=== PATIENT | female | born 1965 | race Caucasian/White ===

== ENCOUNTER → 2024-04-22 09:48 | Outpatient (REF) | payer OTHER, SELFPAY | LOC: HO.SL 09:48 | PROVIDERS: PCP Nurse Practitioner Primary Care; Visit Provider Internal Medicine | DX: G47.33 Obstructive sleep apnea (adult) (pediatric) (principal); I48.91 Unspecified atrial fibrillation | CPT/HCPCS: 95806 ==

== ENCOUNTER → 2024-04-22 10:02 | Outpatient (BNV) | payer OTHER, SELFPAY | PROVIDERS: PCP Nurse Practitioner Primary Care; Visit Provider Internal Medicine | DX: G47.33 Obstructive sleep apnea (adult) (pediatric) (principal) | CPT/HCPCS: 95806 ==

== ENCOUNTER 2024-05-30 11:09 | Outpatient (REF) | payer OTHER, SELFPAY ==
[2024-05-30 13:48] LABS: Anion Gap 12 (12-20); Blood Urea Nitrogen 9 mg/dL (9-16); Calcium 9.2 mg/dL (8.4-10.2); Carbon Dioxide 28 mmol/L (22-29); Chloride 106 mmol/L (96-108); Estimated Glomerular Filt Rate > 60; Glucose Random 72 mg/dL (60-115); Potassium 3.4 mmol/L (3.3-5.1); Sodium 143 mmol/L (135-145)
== END 2024-05-30 11:10 | disposition home or self-care (01) ==
LOC: HO.HMGCLDS 11:09
PROVIDERS: PCP Nurse Practitioner Primary Care; Visit Provider Internal Medicine
DX: I48.91 Unspecified atrial fibrillation (principal)
CPT/HCPCS: 36415; 80048

== ENCOUNTER 2024-06-17 13:42 | Outpatient (AMB) | payer OTHER, SELFPAY ==
[2024-06-17 13:45] VITALS: BP 126/60; PULSE 78; BMI 30.2
--- NOTE | 2024-06-17 13:45 | MHC.OFFVIS ---
Vital Signs 06/17/24 13:45 Height 5 ft 6 in Weight 187 lb 6.287 oz BMI 30.2 BP 126/60 Blood Pressure Location Lt brachial Position Sitting Pulse 78 Pulse Source Pulse Oximeter Intake Visit Reasons: F/U s/p CTA Allergies Penicillins [PCN] Allergy (Verified 04/30/24 13:05) Rash Medication List - Last Reconciled 06/17/24 by Reilly Moncada MD diltiazem HCl CD (Cardizem CD) 120 mg PO DAILY hydrochlorothiazide 12.5 mg PO DAILY rosuvastatin 20 mg PO DAILY HPI Comments Details: Paty returns for follow-up. In 2023, she was seen in the hospital in consultation regarding atrial fibrillation. She received diltiazem and went back to normal sinus rhythm. Has a history of possible PACs/PVCs in the past. She was having some dizziness type symptoms on diltiazem and we tried atenolol. She did not tolerate that either and hence she is back on diltiazem. Otherwise, she mostly feels okay. No significant palpitations or other clear-cut cardiac symptoms. [facility] Medical History Hyperlipidemia Family History Father Atrial fibrillation Mother HTN (hypertension) Sister Skin cancer Social History Household Members: Children Housing: House Do you presently have visiting nurse or other home services: No Alcohol intake: current Alcohol intake frequency: holidays/special occasions only Patient Tobacco Use Status: Former Tobacco user service: No Review of Systems Const Denies weakness ENT Denies dizziness Card Denies chest pain, Denies chest pain with activity, Denies syncope, Denies rapid heart rate, Denies pedal edema, Denies edema, Denies leg edema, Denies lightheadedness, Denies palpitations, Denies dyspnea, Denies dyspnea on exertion and Denies orthopnea Resp Denies cough, Denies dyspnea and Denies dyspnea on exertion GI Denies hematochezia and Denies change in stool character Musc Denies abnormal gait, Denies muscle cramps, Denies muscle weakness, Denies numbness, Denies radiating pain into limb and Denies tingling Neuro Denies abnormal gait, Denies dizziness, Denies syncope, Denies numbness, Denies tingling and Denies weakness Endo Denies palpitations Physical Exam Vital Signs: Last Vital Signs Pulse 78 06/17/24 13:45 BP 126/60 06/17/24 13:45 BMI result Body Mass Index 30.2 Const General: comfortable and no acute distress Orientation/consciousness: patient oriented x3 HEENT Other: Unremarkable Head: Yes normal to inspection Neck Neck: Yes normal visual inspection Chest Chest palpation & inspection: normal inspection of the chest Resp Auscultation: clear to auscultation bilaterally Cardio Palpation: normal PMI Heart sounds: S1 normal heart sound present, S2 normal heart sound present, no gallops, no murmurs and no rubs GI Palpation (GI): Soft to palpation Back/Spine/Pelvis Other: unremarkable Skin General skin exam: no rashes or lesions noted Neuro General: patient oriented x3 Extrem General: Yes normal to inspection Psych Mental Status: mental status grossly normal Assessment & Plan Assessment & Plan (1) Atrial fibrillation: Code(s): I48.91 - Unspecified atrial fibrillation Category: Medical (2) Premature atrial contractions: Code(s): I49.1 - Atrial premature depolarization Category: Medical Plan Cardiac studies reviewed. In the admission EKG, suspected atrial fibrillation rapid ventricular response. Could not exclude a prior inferior infarct or anterior infarct but more likely from body habitus. In the Holter monitor, underlying rhythm is sinus with frequent supraventricular ectopy. Possible transient atrial flutter/tachycardia at nighttime but not clear if it is rather an artifact. In the echocardiogram, LVEF 50-55%. Otherwise unremarkable. Coronary CTA shows no significant CAD. Overall, she seems mostly stable from atrial arrhythmias. Continue diltiazem. If she is still gets recurring symptoms, consider flecainide. We discussed about weight loss and how much it can help the atrial fibrillation she understands. It will also help the mild sleep apnea. She has got a low thromboembolic risk and okay for holding anticoagulation at this point. We will see her in 6 months with another Holter monitor. She will call us with any interim concerns. Discussion Notes I reviewed the patient's management plan for atrial fibrillation, emphasizing that current treatment with diltiazem should continue as it effectively controls symptoms. Considering her mild sleep apnea, I highlighted conservative measures such as weight loss and positional therapy, explaining the potential need for CPAP in the future. I underscored the benefit of self-monitoring devices for capturing episodic symptoms and noted that the risk of anticoagulation may alter with age and accompanying health changes. Patient was informed and verbally consented to the use of an ambient scribe for clinic note documentation during this visit. Orders: Orders ECG 14 day holter monitor 6 Months I48.91 - Unspecified atrial fibrillation Medications: Discontinued atenolol Discontinued Reason: Patient no longer taking 25 mg PO DAILY 90 tabs 3RF Patient Instructions: - Continue diltiazem 120 mg daily for atrial fibrillation. - Take hydrochlorothiazide 25 mg daily, with adjustments as needed for swelling. - Undergo a Holter monitor test in six months. - Focus on weight loss and sleep positioning to manage mild sleep apnea. - Consider using a self-monitoring device for episodes of palpitations. - Contact the office if you experience significant palpitations or other concerns. - Be aware that anticoagulation might be needed in the future based on health assessments. - Follow a diet and exercise program to assist with weight management. Coding Level of Care Code Est Pt Level 4 (85599) Complex EM visit Add On G2211 Diagnoses Atrial fibrillation I48.91 Premature atrial contractions I49.1
--- OUTSIDE RECORDS SUMMARY | 2024-06-17 16:21 | XMS_ITS | Encounter Summary ---
Author Organization [facility] Address [address] [place] [address] Care Team Providers Care Inspector Motor Vehicles Name Role Phone Yesenia Elkins NP Primary Care Provider [phone] Reason for Visit * Reason Onset Date Comments Facial Pain 06/10/2024 Encounter Details Date Type Department Care Team (Late st Contact Info) Description 06/10/2024 Telephone [facility] [address] [facility] [place] [phone] Yesenia Elkins NP [address] [place] [address] Facial Pain Social History Tobacco Use Types Packs/Day Years Used Date Smoking Tobacco: Never Smokeless Tobacco: Never Alcohol Use Standard Drinks/Week Comments Yes 1 (1 standard drink = 0.6 oz pur e alcohol) Comments Unknown Sex and Gender Information Value Date Recorded Sex Assigned at Not on file Legal Sex Female 3:44 PM EST Gender Identity Not on file Sexual Orientation Not on file documented as of this encounter Progress Notes * Adeola Colon MA - 06/10/2024 2:55 PM EDT Pt was told she needs appt to be evalauted cannot prescribe abx over the phone. Pt will call [facility]gent[facility] to book appt. * Yesenia Elkins NP - 06/10/2024 2:48 PM EDT I am not prescribing an antibiotic without an office visit * Evon Jorgensen RN - 06/10/2024 2:11 PM EDT Spoke with the patient stated she has been having sinus pain and pressure non productive cough. Is requesting an antibiotic be sent to her pharmacy. Informed I will send a message to provider but also gave then number to [facility] to call in am. Please review and advise Thank you * Eusebia Olivares - 06/10/2024 1:51 PM EDT Patient call requires triage: Symptoms patient is presenting: headaches, cough, sinus pressure and drainage How long has patient had these symptoms?: 1 week For ALL patients calling to schedule any appointment (routine, sick visit, follow up, consult, etc.) in the outpatient setting please ask the following questions: Do you have fever of higher than 101, sore throat with difficulty swallowing or severe shortness ofbreath? no If YES to any of these above symptoms, send a message to triage and do not book. Red dot. If no, an audio or video visit should be booked. Have you had close contact with someone with Coronavirus in the last 14 days? no Have you traveled abroad? no Have you traveled recently to another state outside of [place], [place], [place], [place], [place], [place], [place]? no o If yes, did you quarantine for 14 days or have a negative covid test? no If yes to any of the above, patient is not to be scheduled in office until after 14 day quarantine or negative covid test. If pain or injury related was it due to an accident at work or from a motor vehicle accident? If yes, date of accident/Injury: No If yes, gather 3rd republican insurance information Third Republican Information: not applicable PCP: Yesenia Elkins NP Payor: / No coverage found. documented in this encounter Plan of Treatment Not on file documented as of this encounter Visit Diagnoses Not on filedocumented in this encounter Care Teams Inspector Motor Vehicles Relationship Specialty Start Date End Date Yesenia Elkins NP [address] [place] [address] [place] [address] PCP - General 03/16/22 documented as of this encounter
--- OUTSIDE RECORDS SUMMARY | 2024-06-17 16:21 | XMS_ITS | Clinical Summary ---
Author Organization [address] [facility] Address [address] [place] [address] Phone Care Team Providers Care Teacher Dramatics Name Role Phone Yesenia Elkins NP Primary Care Provider [phone] Medications rosuvastatin (CRESTOR) 10 mg tabletIndications: Mixed hyperlipidemia TAKE 1 TABLET BY MOUTH EVERY DAY 90 tablet 1 5 Active hydroCHLOROthiazid e (HYDRODIURIL) 25 mg tablet TAKE 1 TABLET BY MOUTH EVERY DAY 90 tablet 5 Active doxycycline (VIBRAMYCIN) 100 mg capsule Take 1 capsule (100 mg total) by mouth 2 (two) times a day for 10 days. Take with at least 8 ounces (large glass) of water, do not lie down for 30 minutes after. Administer 2 hours before or after multivitamins, antacids, or other products containing polyvalent cations (i.e., calcium, iron, magnesium, selenium, zinc). 20 each 5 025 Active Encounters Date Type Department Care Team Description 06/11/2024 1:00 PM EDT Office Visit Walk-In Clinic - [address] [phone] Monica Uribe NP Upper respiratory tract infection, unspecified type (Primary Dx) 06/10/2024 Telephone Internal Medicine - [address] [phone] Medrano NP Facial Pain from Last 3 Months Surgical History Surgery Date Site/Laterality Comments HIP ARTHROPLASTY 2012 Left PROCEDURE: HISTORICAL HIP REPLACEMENT Medical History Medical History Date Comments Venous insufficiency DX:Venous i nsufficiency Hyperlipidemia DX:Hyperlipidemi a Palpitations DX:Palpitations Carpal tunnel syndrome DX:Carpal tunnel syndrome Family History Medical History Relation Name Comments Diabetes Father Hyperlipidemia Father Hypertension Father Other: gout Father Hyperlipidemia Mother Hypertension Mother Other cancer Sister 1 Thyroid disease Sister 1 Asthma Sister 2 Relation Name Status Comments Father Mother Sister 1 Sister 2 Alive Social History Tobacco Use Types Packs/Day Years Used Date Smoking Tobacco: Never Smokeless Tobacco: Never Alcohol Use Standard Drinks/Week Comments Yes 1 (1 standard drink = 0.6 oz pur e alcohol) Comments Unknown Sex and Gender Information Value Date Recorded Sex Assigned at Not on file Legal Sex Female 3:44 PM EST Gender Identity Not on file Sexual Orientation Not on file Obstetrics History Last Filed Vital Signs Vital Sign Reading Time Taken Comments Blood Pressure 110/82 06/11/2024 1:14 PM EDT Pulse 78 06/11/2024 1:14 PM EDT Temperature - - Respiratory Rate - - Oxygen Saturation 98% 06/11/2024 1:14 PM EDT Inhaled Oxygen Concentration - - Weight 86.3 kg (190 lb 3.2 oz) 10/21/2023 9:09 A M EDT Height 154.9 cm (5' 1 ) 10/21/2023 9:09 AM EDT Body Mass Index 35.94 10/21/2023 9:09 AM EDT Plan of Treatment Health Maintenance Due Date Last Done Comments Breast Cancer Screening 1966 Hepatitis B Vaccines (1 of 3 - 19+ 3-dose series) 1985 Cervical Cancer Screening: Pap Smear 1987 Pneumococcal Vaccine: 50+ Years (1 of 1 - PCV) 2016 Zoster Vaccines (1 of 2) 2016 Colorectal Cancer Screening: Colonoscopy 01/24/2022 Depression Screening 01/24/2022 HIV Screening 01/24/2022 Hepatitis C Screening 01/24/2022 Social Influencers of Health Screening 01/24/2022 COVID-19 Vaccine ( season) 2023 11/03/2021, 11/09/2020, 10/24/2020, Additional history exists Influenza Vaccine (Season Ended) 2024 Cholesterol Screening (Lipid Panel) 10/20/2028 10/21/2023 DTaP,Tdap,and Td Vaccines (2 - Td or Tdap) 10/20/2033 10/21/2023 HIB Vaccines Aged Out No longer eligi ble based on patient's age to complete this topic HPV Vaccines Aged Out No longer eligi ble based on patient's age to complete this topic Hepatitis A Vaccines Aged Out No long er eligible based on patient's age to complete this topic IPV Vaccines Aged Out No longer eligi ble based on patient's age to complete this topic MMR Vaccines Aged Out No longer eligi ble based on patient's age to complete this topic Meningococcal ACWY Vaccine Aged Out N o longer eligible based on patient's age to complete this topic Meningococcal B Vaccine Aged Out No l onger eligible based on patient's age to complete this topic Pneumococcal Vaccine: Pediatrics (0 to 5 Years) and At-Risk Patients (6 to 64 Years) Aged Out No longer eligible based on patient's age to complete this topic RSV Immunization Patients Under 20 months Aged Out No longer eligible based on patient's age to complete this topic Varicella Vaccines Aged Out No longer eligible based on patient's age to complete this topic Procedures Procedure Name Priority Date/Time Associated Diagnosis Comments POC RAPID [id number], MOLECULAR Routine 06/11/2024 1:29 PM EDT Upper respiratory tract infection, unspecified type POC INFLUENZA A/B Routine 06/11/2024 1:2 8 PM EDT Upper respiratory tract infection, unspecified type EXTERNAL CLINICAL LAB 06/01/2024 from Last 3 Months Results * Poc Rapid [id number], MOLECULAR (06/11/2024 1:29 PM EDT) COVID-19/SARS- COV-2 Rapid POC Negative Negative Swab Nasopharyngeal structure / Unknown 06/11/2024 1:29 PM EDT Monica Uribe NP POINT OF CARE TEST ENTER/EDIT ORDERABLES Final Result * POC Influenza A/B manually resulted (06/11/2024 1:28 PM EDT) Rapid Influenza A AGN POC Negative Negative Rapid Influenza B AGN POC Negative Negative Swab 06/11/2024 1:28 PM EDT Monica Uribe NP POINT OF CARE TEST ENTER/EDIT ORDERABLES Final Result * External clinical lab (06/01/2024) Provider [facility] BLOOD ORDERABLES Fin al Result from Last 3 Months Insurance [employer] Care Teams Teacher Dramatics Relationship Specialty Start Date End Date Yesenia Elkins NP [address] [place] [address] PCP - General 03/16/22
== END 2024-06-17 14:13 | disposition home or self-care (01) ==
LOC: HO.HCS 13:42
PROVIDERS: PCP Nurse Practitioner Primary Care; Visit Provider Internal Medicine
DX: I48.91 Unspecified atrial fibrillation (principal); I49.1 Atrial premature depolarization
CPT/HCPCS: 99214; G2211

== ENCOUNTER → 2024-06-17 13:42 | Outpatient (BNVA) | payer OTHER, SELFPAY | PROVIDERS: PCP Nurse Practitioner Primary Care; Visit Provider Internal Medicine ==

== ENCOUNTER 2024-07-01 13:46 | Emergency (ER) | payer OTHER, SELFPAY ==
--- NOTE | ~2024-07-01 | CT_ITS ---
EXAMINATION: CT WRIST WITHOUT CONTRAST, RIGHT CLINICAL INFORMATION: Right wrist pain injury, further evaluation. COMPARISON: No prior CT. Right wrist radiograph earlier same day. TECHNIQUE: Spiral CT imaging of the right wrist performed in axial plane without contrast. Multiplanar reformatted images were constructed from the axial data set. This CT examination was performed using dose optimization techniques as appropriate, variously including the following: *Automated exposure control *Adjustment of mA and/or kV according to patient size (this includes techniques or standardized protocols for targeted exams where dose is matched to indication/reason for exam; i.e. extremities or head) *Use of iterative reconstruction technique FINDINGS: There is no discrete fracture or dislocation. There is normal alignment of the carpal rows. Carpal bones are all intact and normally aligned. There is a cyst within the central capitate bone. There are no carpal erosions identified. The scaphoid, trapezium, trapezoid, capitate, hamate, who of the hamate, triquetrum, and pisiform bones are intact and aligned. The DRUJ is intact. The syndesmosis is intact. Anterolateral to the scaphotrapezium joint, there are amorphous calcifications highly suggestive of calcium pyrophosphate deposition (CPPD). (Best seen series 8, image 35). Soft tissues otherwise normal. CT/CT wrist RT wo IV con IMPRESSION: 1. No fracture, dislocation, or suspicious bone lesion. No evidence of erosive arthropathy. 2. Amorphous calcifications anterolateral to the scaphotrapezium joint, highly suggestive of calcium pyrophosphate deposition. This finding can be associated with inflammatory CPPD arthropathy, as well as acute calcific periarthritis. Correlate for snuffbox tenderness. Electronically signed by: Yunior Milton MD 07/01/2024 04:19 PM EDT
--- NOTE | ~2024-07-01 | XR_ITS ---
EXAMINATION: XR WRIST, RIGHT CLINICAL INFORMATION: Atraumatic right wrist pain COMPARISON: None available. TECHNIQUE: PA, lateral, and oblique views of the right wrist. FINDINGS: There is mild bone fragments in the intercarpal joint of scaphoid and trapezium bone likely old injury or calcification. There is no acute fracture or dislocation seen. There is mild dorsal subluxation of distal ulna in relation to the radius on lateral view. There is negative ulnar variance. XR/XR wrist RT min 3V IMPRESSION: No acute fracture. Mild subluxation of distal ulna in relation to radius on lateral view. Small loose bodies versus calcification along the scaphoid trapezial bone. Question loose bodies versus calcification. Electronically signed by: Sonu Padilla MD 07/01/2024 03:15 PM EDT
--- NOTE | 2024-07-01 13:55 | ED_ITS ---
HPI - Extremity Injury (Upper) General Chief Complaint: Extremity Injury, Upper Stated Complaint: R Wrist Injury Time Seen by Provider: 07/01/24 15:04 Source: patient Mode of arrival: ambulatory Limitations: no limitations History of Present Illness ED Provider: Zaina Hoang PA-C HPI narrative: Patient is a 59 year old assigned female at with a history of HLD and atrial fib presenting to the emergency department today with right wrist pain. Patient states that she was doing yard work on 06/28/2024 - pruning things mostly. 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 Patient denies any dizziness, lightheadedness, abdominal pain, nausea, vomiting, fever, chills, blurry vision, double vision, loss of vision, chest pain, difficulty breathing, shortness of breath, back pain, night sweats, pain with urination, increased urinary frequency, increased urinary urgency, blood in her urine or stool, syncope or a near syncopal episode, recent trauma or falls, bowel incontinence, bladder incontinence, or any other complaints at this time. Related Data Home Medications ?Medication ?Instructions ?Recorded ?Confirmed rosuvastatin 10 mg tablet 20 mg PO DAILY 12/09/23 06/17/24 hydrochlorothiazide 25 mg tablet 12.5 mg PO DAILY 06/17/24 06/17/24 Previous Rx's ?Medication ?Instructions ?Recorded diltiazem HCl 120 mg 120 mg PO DAILY #90 caps 03/24/24 capsule,extended release 24 hr (Cardizem CD) Allergies Allergy/AdvReac Type Severity Reaction Status Date / Time Penicillins [PCN] Allergy Rash Verified 07/01/24 13:58 Review of Systems Constitutional: Constitutional: Reports no additional constitutional complaints, Denies chills, Denies fever(s) and Denies night sweats Eyes: Eyes: Reports no additional eye complaints, Denies blurry vision, Denies change in vision, Denies diplopia, Denies eye discharge, Denies loss of vision and Denies eye pain ENT: Denies dizziness Cardiovascular: Cardiovascular: Reports no additional cardiovascular complaints, Denies chest pain, Denies lightheadedness, Denies Loss of Consciousness and Denies dyspnea Respiratory: Respiratory: Reports no additional respiratory complaints and Denies dyspnea Gastrointestinal: Gastrointestinal: Reports no additional gastrointestinal complaints, Denies abdominal pain, Denies melena, Denies hematochezia, Denies change in bowel habits and Denies change in stool character Genitourinary: Genitourinary: Denies hematuria, Denies urinary frequency, Denies dysuria, Denies urinary incontinence, Denies urinary hesitancy and Denies urinary urgency Musculoskeletal: Musculoskeletal: Reports no additional musculoskeletal complaints, Denies numbness and Denies tingling Comments: right wrist pain Neurologic: Denies dizziness, Denies loss of vision, Denies numbness and Denies tingling Psychiatric: Psychiatric: Reports no additional psychiatric complaints Endocrine: Endocrine: Reports no additional endocrine complaints Hematologic/Lymphatic: Hematologic/Lymphatic: Reports no additional hematologic/lymphatic complaints Allergic/Immunologic: Allergic/Immunologic: Reports no additional allergic/immunologic complaints PMFSH Past Medical History Attestation statement: The following information was validated with the patient. Source: old records reviewed and nursing notes reviewed Medical History Hyperlipidemia Family History Family History Father Atrial fibrillation Mother HTN (hypertension) Sister Skin cancer Social History Social History Household Members: Children Housing: House Do you presently have visiting nurse or other home services: No Alcohol intake: current Alcohol intake frequency: holidays/special occasions only Patient Tobacco Use Status: Former Tobacco user Advance Directives: No Advance Directives Information Provided: Yes service: No Physical Exam Vital Signs: Vital Signs: Last Vital Signs Temp 97.6 F 07/01/24 13:56 Pulse 90 07/01/24 13:56 Resp 18 07/01/24 13:56 BP 129/74 07/01/24 13:56 Pulse Ox 94 07/01/24 13:56 O2 Del Method Room Air 07/01/24 13:56 BMI result Body Mass Index 37.0 Const: General: cooperative, no acute distress, alert and awake Nutritional Appearance: well nourished Orientation/consciousness: patient oriented x3 HEENT: Head: Yes normal to inspection and Yes atraumatic Ears: hearing grossly normal bilaterally and external ears normal General nose exam: Normal external nose present, no nasal discharge noted and no epistaxis Face and sinus: Yes normal facial exam, No abrasion and No laceration Mouth: Normal oral and palatal mucosa present, no drooling and no muffled voice Eyes: General: appearance normal, both eyes and all related structures Per iorbital: periorbital findings normal Eyelids: Yes eyelids normal Conjunctivae: conjunctivae normal Pupils: Equal, round and reactive pupils present EOM: EOMs intact bilaterally Neck: Neck: Yes normal visual inspection, Yes full ROM and Yes no lymphadenopathy Resp: Effort & Inspection: normal respiratory effort and able to speak in complete sentences Neuro: General: patient oriented x3, moves all extremities and CN's II-XI intact bilaterally Cranial nerves: Yes Equal, round and reactive pupils present Cognition (Neuro): normal cognition Extrem: Other: minimal swelling present to the dorsal right wrist along the radial aspect pain with palpation of the right radial wrist - including in the snuff box pain with supination of the right wrist able to touch thumb to each finger tip of the right hand General: Yes capillary refill normal Psych: Appearance: grossly normal Mental Status: mental status grossly normal Affect: normal affect Attitude: cooperative Thought process: Normal thought process present Thought content: Normal thought content present Insight: Good insight present (Psych) Course Course Course Narrative: This is a Rapid Medical Exam performed in triage by Katelyn Pan PA-C. Full HPI, ROS and PE to be performed by primary ED provider. 59-year-old female with a past medical history of AFib, HLD presenting to the ED c/o right wrist pain/swelling s/p doing yard work on Saturday. Denies direct injury/fall, numbness/tingling. She states she has been taking Tylenol/ibuprofen and icing the wrist without effect. PE: +mild right wrist swelling with reproducible snuffbox tenderness. ROM intact with discomfort. Plan: XR, pain control Medical Decision Making Medical Decision Making MDM Narrative: Patient is a 59 year old assigned female at with a history of HLD and atrial fib presenting to the emergency department today with right wrist pain. Patient's physical exam was as noted in the physical exam portion of this note. Patient's right wrist x-ray showed mild subluxation of the distal ulna with small loose bodies vs. calcification along the scaphoid trapezial bone. Given the patient's significant pain on examination, I obtained a CT of the right wrist that showed amorphus calcifications anterolateral to the scaphotrapezium joint highly suggestive of calcium pyrophosphate deposition. I consulted with [facility]opedic team who recommended a thumb spica splint and outpatient follow up in their office. I explained my physical exam findings as well as all test results to the patient. I answered all questions asked by the patient. Velcro thumb spica splint to the right wrist, without incident. Patient's PMS was intact prior to and after splint placement. I stressed the importance of the patient taking her medication as directed (either prescribed or as the over the counter packaging recommends). I stressed the importance of the patient following up with her primary care provider and the orthopedic team. I stressed the importance of the patient returning to the emergency department immediately if her symptoms were to worsen or if she were to develop any dizziness, shortness of breath, difficulty breathing, chest pain, blurry vision, loss of vision, nausea, vomiting, abdominal pain, fever, chills, back pain, or any other complaints. Patient verbalized agreement and understanding with this treatment plan and discharge. Differential Diagnosis Differential Diagnoses: The differential diagnosis associated with the presentation includes Wrist sprain Wrist strain Pseudogout Admission/Observation Consideration of admission/observation: Escalation of care including admission/observation considered Patient would have been admitted to the hospital had her work up had any findings where hospital admission was appropriate and her clinical presentation warranted hospital admission. Consult Healthcare Provider Management of the patient was discussed with: Teleradiologist (Spoke with the orthop edic team as noted in the MDM Rationale portion of this note. ) Independent Interpretation I performed an independent interpretation of an: Plain X-Ray and CT Scan Interpretation: My interpretation is in agreement with the radiologist's impression of these imaging studies. EXAMINATION: XR WRIST, RIGHT CLINICAL INFORMATION: Atraumatic right wrist pain COMPARISON: None available. TECHNIQUE: PA, lateral, and oblique views of the right wrist. FINDINGS: There is mild bone fragments in the intercarpal joint of scaphoid and trapezium bone likely old injury or calcification. There is no acute fracture or dislocation seen. There is mild dorsal subluxation of distal ulna in relation to the radius on lateral view. There is negative ulnar variance. XR/XR wrist RT min 3V IMPRESSION: No acute fracture. Mild subluxation of distal ulna in relation to radius on lateral view. Small loose bodies versus calcification along the scaphoid trapezial bone. Question loose bodies versus calcification. Electronically signed by: Sonu Padilla MD 07/01/2024 03:15 PM EDT Dictated By: Sonu Padilla MD Signed By: Electronically signed by Sonu Padilla MD 07/01/24 1515 Report Number: [id number]: Total DLP = 73.00 mGy-cm EXAMINATION: CT WRIST WITHOUT CONTRAST, RIGHT CLINICAL INFORMATION: Right wrist pain injury, further evaluation. COMPARISON: No prior CT. Right wrist radiograph earlier same day. TECHNIQUE: Spiral CT imaging of the right wrist performed in axial plane without contrast. Multiplanar reformatted images were constructed from the axial data set. This CT examination was performed using dose optimization techniques as appropriate, variously including the following: *Automated exposure control *Adjustment of mA and/or kV according to patient size (this includes techniques or standardized protocols for targeted exams where dose is matched to indication/reason for exam; i.e. extremities or head) *Use of iterative reconstruction technique FINDINGS: There is no discrete fracture or dislocation. There is normal alignment of the carpal rows. Carpal bones are all intact and normally aligned. There is a cyst within the central capitate bone. There are no carpal erosions identified. The scaphoid, trapezium, trapezoid, capitate, hamate, who of the hamate, triquetrum, and pisiform bones are intact and aligned. The DRUJ is intact. The syndesmosis is intact. Anterolateral to the scaphotrapezium joint, there are amorphous calcifications highly suggestive of calcium pyrophosphate deposition (CPPD). (Best seen series 8, image 35). Soft tissues otherwise normal. CT/CT wrist RT wo IV con IMPRESSION: 1. No fracture, dislocation, or suspicious bone lesion. No evidence of erosive arthropathy. 2. Amorphous calcifications anterolateral to the scaphotrapezium joint, highly suggestive of calcium pyrophosphate deposition. This finding can be associated with inflammatory CPPD arthropathy, as well as acute calcific periarthritis. Correlate for snuffbox tenderness. Electronically signed by: Yunior Milton MD 07/01/2024 04:19 PM EDT RP Dictated By: Yunior Milton MD Signed By: Electronically signed by Yunior Milton MD 07/01/24 1619 Radiology Impression Discussion of test interpretation with radiology: I have reviewed the radiologist's reading. Procedures Orthopedic Splinting/Casting Injury #1: Side: right Upper Extremity Injury Location: wrist Upper Extremity Immobilizer: thumb spica Critical Care Time Critical Care Time Critical Care Time: Yes Total Critical Care Time: 37 Attestation: I spent 37 minutes of Critical Care Time with this patient. This does not include time spent on separately reported billable procedures. Discharge Plan Discharge Clinical Impression: Pseudogout, Acute wrist pain Patient Disposition: Home, Self-Care Instructions: Arthralgia (ED) Additional Instructions: Do NOT get your splint wet. Do NOT remove your splint (unless it is to bathe ONLY). If you have any change in sensation, movement, or color of your right fingers - you may loosen the outer KAREN wrap and the velcor of the splint. Follow up with your primary care provider and the orthopedic team. Return to the emergency department immediately if your symptoms worsen or if you develop any numbness, tingling, dizziness, shortness of breath, difficulty breathing, chest pain, blurry vision, loss of vision, nausea, vomiting, abdominal pain, fever, chills, back pain, or any other complaints. Please see the information below about our Patient Portal. If you are not yet enrolled in the [facility] Patient Portal, you will receive an enrollment email invitation following your visit to any [facility] setting. You may also self-enroll in the Patient Portal by visiting our website: [email or web address] The following information is required to access the Patient Portal: - Your [facility] Medical Record Number - Your personal home email address (must match what is in your electronic medical record, Registration staff can assist with this) - Name - Date of Capabilities of the Patient Portal: - Message some providers - View upcoming appointments - Access your health summary, medical history, and visit history - View current conditions and allergies - View procedure and lab results - View your medications, including guidelines, side effects, and precautions - Complete pre-appointment questionnaires requested by your provider - Ready summary reports of your office visits and procedures To access the Patient Portal Mobile [employer], follow these directions: - Search Specific Media in the [employer] Store or [employer] Store - Download the Isabelle - Search for [facility] - Enter your login/password Prescriptions: No Action diltiazem HCl [Cardizem CD] 120 mg capsule,extended release 24hr 120 mg PO DAILY Qty: 90 3RF rosuvastatin 10 mg tablet 20 mg PO DAILY hydrochlorothiazide 25 mg tablet 12.5 mg PO DAILY Referrals: [facility] [Provider Group] (Call to establish and follow up with the orthopedic team.) Yesenia Elkins, ARTEMIO [Primary Care Provider] - Print Language: Setswana
[2024-07-01 13:56] VITALS: BP 129/74; PULSE 90; RESP 18; TEMP 36.4; O2SAT 94; BMI 37.0
--- OUTSIDE RECORDS SUMMARY | 2024-07-01 16:08 | XMS_ITS | Clinical Summary ---
Author Organization [address] [facility] Address [address] [place] [address] Phone Care Team Providers Care Pearl Technician Name Role Phone Yesenia Elkins NP Primary Care Provider [phone] Medications rosuvastatin (CRESTOR) 10 mg tabletIndications: Mixed hyperlipidemia TAKE 1 TABLET BY MOUTH EVERY DAY 90 tablet 1 04/06/19 25 Active hydroCHLOROthiazid e (HYDRODIURIL) 25 mg tablet TAKE 1 TABLET BY MOUTH EVERY DAY 90 tablet 04/27/19 25 Active doxycycline (VIBRAMYCIN) 100 mg capsule Take 1 capsule (100 mg total) by mouth 2 (two) times a day for 10 days. Take with at least 8 ounces (large glass) of water, do not lie down for 30 minutes after. Administer 2 hours before or after multivitamins, antacids, or other products containing polyvalent cations (i.e., calcium, iron, magnesium, selenium, zinc). 20 each 06/12/19 25 025 Encounters Date Type Department Care Team Description 06/11/2024 1:00 PM EDT Office Visit Walk-In Clinic - [address] [phone] Monica Uribe NP Upper respiratory tract infection, unspecified type (Primary Dx) 06/10/2024 Telephone Internal Medicine - [address] [phone] Yesenia Elkins NP Facial Pain from Last 3 Months [...] Priority Date/Time Associated Diagnosis Comments POC RAPID [id number], MOLECULAR Routine 06/11/2024 1:29 PM EDT Upper respiratory tract infection, unspecified type POC INFLUENZA A/B Routine 06/11/2024 1:2 8 PM EDT Upper respiratory tract infection, unspecified type EXTERNAL CLINICAL LAB 06/01/2024 from Last 3 Months Results * Poc Rapid [id number], MOLECULAR (06/11/2024 1:29 PM EDT) COVID-19/SARS- COV-2 [...] Last 3 Months Insurance [employer] Care Teams Pearl Technician Relationship Specialty Start Date End Date Yesenia Elkins NP [address] [address] PCP - General 03/16/22
--- OUTSIDE RECORDS SUMMARY | 2024-07-01 16:08 | XMS_ITS | Encounter Summary ---
Author Organization [facility] Address [address] [place] [address] Care Team Providers Care Production Lapping Machine Operator Name Role Phone Yesenia Elkins NP Primary Care Provider [phone] Reason for Visit * Reason Onset Date Comments Facial Pain 06/10/2024 Encounter Details Date Type Department Care Team (Late st Contact Info) Description 06/10/2024 Telephone Internal Medicine [facility] [address] [facility] [place] [phone] Yesenia Elkins NP [address] [place] [address] Facial Pain Social History Tobacco Use Types [...] provider but also gave then number to [facility] to call in am. Please review and [...] traveled recently to another state outside of [place], [place], [place], [place], [place], [place], [place]? no o If yes, did you quarantine [...] of accident/Injury: No If yes, gather 3rd alliance party insurance information Third Green Party Information: not applicable PCP: Yesenia Elkins NP Payor: / No coverage found. documented in this encounter Plan of Treatment Not on file documented as of this encounter Visit Diagnoses Not on filedocumented in this encounter Care Teams Production Lapping Machine Operator Relationship Specialty Start Date End Date Yesenia Elkins NP [address] [place] [address] [place] [address] PCP - General 03/16/22 documented as of this encounter
[2024-07-01] MEDS: Ketorolac Tromethamine 15 MG/ML VIAL IM (17:00)
[2024-07-01 17:09] VITALS: BP 129/74; PULSE 90; RESP 18; TEMP 36.4; O2SAT 94
== END 2024-07-01 17:09 | disposition home or self-care (01) ==
PROVIDERS: Emergency Provider Emergency Medicine; PCP Nurse Practitioner Primary Care
DX: S69.91XA Unspecified injury of right wrist, hand and finger(s), initial encounter (principal); M11.231 Other chondrocalcinosis, right wrist; M25.531 Pain in right wrist; X58.XXXA Exposure to other specified factors, initial encounter; Y93.9 Activity, unspecified; Y92.9 Unspecified place or not applicable; Y99.8 Other external cause status; Z79.899 Other long term (current) drug therapy; Z87.891 Personal history of nicotine dependence
CPT/HCPCS: 73110; 73200; 96372; 99283; 99284; J1885

== ENCOUNTER → 2024-07-01 14:40 | Outpatient (BNV) | payer OTHER, SELFPAY | PROVIDERS: PCP Nurse Practitioner Primary Care; Visit Provider Radiology Diagnostic Radiology | DX: M00-M99 Diseases of the musculoskeletal system and connective tissue (principal); M25.531 Pain in right wrist | CPT/HCPCS: 73110; 73200 ==

== ENCOUNTER 2024-07-07 10:47 | Outpatient (AMB) | payer OTHER, SELFPAY ==
--- NOTE | 2024-07-07 11:33 | A.OFFVIS_ITS ---
Vital Signs 07/07/24 11:34 07/07/24 11:35 Height 5 ft 5 ft Weight 189 lb 189 lb BMI 36.9 36.9 Intake Visit Reasons: ER f/u Acute Right Wrist pain DOI 06/29/24 Intake Note: Paty 59 yr old right hand dominant female presents today for a fracture care visit [facility] ED visit on 07/01/24. States on 06/29/24 she was experiencing pain and swelling in wrist. Pain is mainly at base of her thumb. Pain is worsen with twisting and gripping movement. This worsen in the next few days. She recalls doing some gardening that week and might have done something to aggravate pain. Seen in ED where she was given a brace, states her pain has improved since DOI. Denies numbness, tingling or locking of any finger. Allergies Penicillins [PCN] Allergy (Verified 07/07/24 11:40) Rash HPI HPI ER f/u Acute Right Wrist pain DOI 06/29/24: Details: Paty is a 59 year old right hand dominant woman who presents for right volar radial wrist pain. She says her pain began on 06/29/24, the day after she spent a long period gardening. She was seen in the ED on 07/01/24 and received a wrist brace, which she finds helpful She complains of pain at the base of her thumb, worse with pinching & gripping activities. She says her pain has improve since she has been resting her wrist. She is not happy with her current wrist brace, and says she preferred the KAREN wrap. She denies any numbness, tingling, locking, or catching. She denies any falls. [facility] Medical History (Updated 07/07/24 @ 12:04 by Yoseph Aponte) Hyperlipidemia Surgical History (Updated 07/07/24 @ 11:41 by JOSHUA Desai) History of total left hip replacement Family History Father Atrial fibrillation Mother HTN (hypertension) Sister Skin cancer Social History (Updated 07/07/24 @ 11:41 by JOSHUA Desai) Household Members: Children Housing: House Do you presently have visiting nurse or other home services: No Alcohol intake: current Alcohol intake frequency: holidays/special occasions only Patient Tobacco Use Status: Former Tobacco user service: No Current occupational status: employed 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 Review of Systems Const All systems reviewed & are unremarkable except as noted in HPI and below Physical Exam Vital Signs: BMI result Body Mass Index 36.9 Const General: cooperative, healthy appearing and no acute distress Orientation/consciousness: patient oriented x3 HEENT Head: Yes normocephalic and Yes atraumatic Eyes EOM: EOMs intact bilaterally Resp Effort & Inspection: normal respiratory effort and able to speak in complete sentences Cardio Jugular venous distension: no JVD Skin General skin exam: turgor normal Rashes: no rashes Neuro General: patient oriented x3 Extrem Other: Evaluation of Right Upper Extremity: The patient is alert, oriented, and in no acute distress Neuro: Median, Ulnar, Radial nerves motor and sensory intact and sensation is normal to the tips of all digits Vascular: Cap refill brisk ROM: She can make a fist and extend all her digits No locking or catching Skin: No lacerations or abrasions. General: No Ecchymosis. No Erythema or evidence of infection. Negative Gisela test on the right Mild tenderness over scaphoid tubercle CT/CT wrist RT wo IV con IMPRESSION: 1. No fracture, dislocation, or suspicious bone lesion. No evidence of erosive arthropathy. 2. Amorphous calcifications anterolateral to the scaphotrapezium joint, highly suggestive of calcium pyrophosphate deposition. This finding can be associated with inflammatory CPPD arthropathy, as well as acute calcific periarthritis. Correlate for snuffbox tenderness. Electronically signed by: Yunior Milton MD 07/01/2024 Radiographs: 3 views of the right wrist from 07/01/24 were reviewed by me today in clinic. They show no fractures or dislocations. There are calcifications seen between the distal scaphoid & trapezium. Psych Appearance: grossly normal Affect: normal affect Attitude: cooperative Assessment & Plan Assessment & Plan (1) Right wrist pain: Code(s): M25.531 - Pain in right wrist Category: Medical Plan Assessment & Plan: 1. Right wrist calcium deposit at scaphotrapezium joint Possibly due to CPPD I educated her about this condition I discussed operative and non-operative treatment options We discussed safe use of Ibuprofen I recommend activity modification & bracing, and she is in agreement She should limit or avoid any pinching, gripping, or overuse of her wrist, or other activities which cause her pain She was fitted for a comfort cool brace to wear with daily activity She can follow up prn Scribed for Mena Fuentes MD by Yoseph Aponte, forensic medical examiner, on 07/07/24 at 11:45 AM, EST. Coding Level of Care Code New Pt Level 4 (71840) Diagnoses Right wrist pain M25.531
[2024-07-07 11:34] VITALS: BMI 36.9
[2024-07-07 11:35] VITALS: BMI 36.9
--- OUTSIDE RECORDS SUMMARY | 2024-07-07 12:13 | XMS_ITS | Encounter Summary ---
Author Organization [facility] Address [address] [place] [address] Care Team Providers Care Auger Press Operator Name Role Phone Yesenia Elkins NP Primary Care Provider [phone] Reason for Visit * Reason Onset Date Comments Facial Pain 06/10/2024 Encounter Details Date Type Department Care Team (Late st Contact Info) Description 06/10/2024 Telephone Internal Medicine - [address] [facility] [place] [place] [phone] Yesenia Elkins NP [address] [place] [address] Facial Pain Social History Tobacco Use Types [...] provider but also gave then number to [facility] to call in am. Please review and [...] traveled recently to another state outside of [place], [place], [place], [place], [place], [place], [place]? no o If yes, did you quarantine [...] yes, gather 3rd republican insurance information Third Democrat Information: not applicable PCP: Yesenia Elkins NP Payor: / No coverage found. documented in this encounter Plan of Treatment Not on file documented as of this encounter Visit Diagnoses Not on filedocumented in this encounter Care Teams Auger Press Operator Relationship Specialty Start Date End Date Yesenia Elkins NP [address] [place] [address] [place] [address] PCP - General 03/16/22 documented as of this encounter
--- OUTSIDE RECORDS SUMMARY | 2024-07-07 12:13 | XMS_ITS | Clinical Summary ---
Author Organization [address] [facility] Address [address] [place] [address] Phone Care Team Providers Care Telecommunications Field Technician Name Role Phone Yesenia Elkins NP Primary Care Provider [phone] Medications rosuvastatin (CRESTOR) 10 mg tabletIndications: Mixed [...] PM EDT Office Visit Walk-In Clinic - [address] [phone] Monica Uribe NP Upper respiratory tract infection, unspecified type (Primary Dx) 06/10/2024 Telephone Internal Medicine - [address] [phone] Yesenia Elkins NP Facial Pain from Last [...] Priority Date/Time Associated Diagnosis Comments POC RAPID [id number], MOLECULAR Routine 06/11/2024 1:29 PM EDT Upper respiratory tract infection, unspecified type POC INFLUENZA A/B Routine 06/11/2024 1:2 8 PM EDT Upper respiratory tract infection, unspecified type EXTERNAL CLINICAL LAB 06/01/2024 from Last 3 Months Results * Poc Rapid [id number], MOLECULAR (06/11/2024 1:29 PM EDT) COVID-19/SARS- COV-2 [...] Last 3 Months Insurance [employer] Care Teams Telecommunications Field Technician Relationship Specialty Start Date End Date Yesenia Elkins NP [address] [address] PCP - General 03/16/22
== END 2024-07-07 12:51 | disposition home or self-care (01) ==
LOC: HO.HOS 10:47
PROVIDERS: PCP Nurse Practitioner Primary Care; Visit Provider Orthopaedic Surgery
DX: M25.531 Pain in right wrist (principal)
CPT/HCPCS: 99203

== ENCOUNTER → 2024-11-25 09:31 | Outpatient (REF) | payer OTHER, SELFPAY ==
--- NOTE | 2024-11-25 09:35 | HM_ITS ---
* Total monitoring time 14 days. * Underlying rhythm is sinus with an average rate of 87/Min. * Rare supraventricular ectopy with a burden of 0.5%. * Rare ventricular ectopy with a burden of 0.4%. * No significant pauses or high-grade AV blocks. * Patient markers used with sinus rhythm and ventricular ectopy. * No diary events. MTDD
--- OUTSIDE RECORDS SUMMARY | 2024-11-25 10:25 | XMS_ITS | Clinical Summary ---
Author Organization [facility] [address] [facility] Building Address [address] [place] [phone] Phone Care Team Providers Care Heel Painter Name Role Phone Yesenia Elkins NP Primary Care Provider [phone] Medications rosuvastatin (CRESTOR) 10 mg tabletIndications:M ixed hyperlipidemia TAKE 1 TABLET BY MOUTH EVERY DAY 90 tablet 1 5 Active hydroCHLOROthiazide (HYDRODIURIL) 25 mg tablet TAKE 1 TABLET BY MOUTH EVERY DAY 90 tablet 5 Active Surgical History Surgery Date Site/Laterality Comments HIP [...] Last Done Comments Breast Cancer Screening 1966 Colorectal Cancer Screening: Colonoscopy 1966 Hepatitis B Vaccines (1 of 3 - 19+ 3-dose series) 1985 Cervical Cancer Screening: Pap Smear 1987 Pneumococcal Vaccine: 50+ Years (1 of 1 - PCV) 2016 Zoster Vaccines (1 of 2) 2016 HIV Screening 01/24/2022 Hepatitis C Screening 01/24/2022 Social Influencers of Health Screening 01/24/2022 Depression Screening 02/26/2024 COVID-19 Vaccine ( - season) 2024 11/03/2021, 11/09/2020, 10/24/2020, Additional history exists Influenza Vaccine (#1) 2024 Cholesterol Screening (Lipid Panel) 10/20/2028 10/21/2023 DTaP,Tdap,and Td Vaccines (2 - Td or Tdap) 10/20/2033 10/21/2023 RSV Immunization Adult Patients (1 - 1-dose 75+ series) 2041 HIB Vaccines Aged Out No longer eligi [...] on patient's age to complete this topic Insurance [employer] Care Teams Heel Painter Relationship Specialty Start Date End Date Yesenia Elkins NP [address] [facility] [place] [address] PCP - General 03/16/22
== END ==
LOC: HO.CARD 09:31
PROVIDERS: PCP Nurse Practitioner Primary Care; Visit Provider Internal Medicine
DX: I48.91 Unspecified atrial fibrillation (principal)
CPT/HCPCS: 93246

== ENCOUNTER → 2024-11-25 09:35 | Outpatient (BNV) | payer OTHER, SELFPAY | PROVIDERS: PCP Nurse Practitioner Primary Care; Visit Provider Internal Medicine | DX: I49.3 Ventricular premature depolarization (principal); I49.49 Other premature depolarization | CPT/HCPCS: 93248 ==

== ENCOUNTER 2024-12-16 10:39 | Outpatient (AMB) | payer OTHER, SELFPAY ==
--- NOTE | 2024-12-16 10:51 | MHC.OFFVIS ---
Vital Signs 12/16/24 10:52 Height 5 ft Weight 188 lb 4.396 oz BMI 36.8 BP 120/76 Blood Pressure Location Lt brachial Position Sitting Pulse 84 Pulse Source Monitor Intake Visit Reasons: 6 mth f/up holter Junk Dealer Required: No Accompanied by: Self / Same As Patient Allergies Penicillins (PCN) Allergy (Verified 12/16/24 10:55) Rash Medication List - Last Reconciled 12/16/24 by Reilly Moncada MD diltiazem HCl CD (Cardizem CD) 120 mg PO DAILY hydrochlorothiazide 12.5 mg PO DAILY multivitamin 1 tab PO DAILY rosuvastatin 20 mg PO DAILY HPI Comments Details: Paty returns for follow-up. In 2023, she was seen in the hospital in consultation regarding atrial fibrillation. She received diltiazem and went back to normal sinus rhythm. Has a history of possible PACs/PVCs in the past. She was having some dizziness type symptoms on diltiazem and we tried atenolol. She did not tolerate that either and hence she is back on diltiazem. For the most part, it seems she is feeling fine. She has not really had any recurring atrial fibrillation or other concerns. Weight is just about the same as before. 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 occupational status: employed 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 Review of Systems Const Denies daytime sleepiness, Denies difficulty sleeping, Denies snoring, Denies stops breathing during sleep and Denies weakness Card Denies chest pain, Denies rapid heart rate, Denies irregular heart rhythm, Denies claudication, Denies leg edema, Denies lightheadedness, Reports palpitations, Denies dyspnea, Denies dyspnea on exertion, Denies orthopnea, Denies paroxysmal nocturnal dyspnea and Denies slow heart rate Resp Denies cough, Denies dyspnea, Denies dyspnea on exertion and Denies snoring GI Reports no additional complaints, Denies hematochezia, Denies change in stool character and Denies dyspepsia Musc Denies abnormal gait, Denies muscle weakness and Denies numbness Neuro Denies abnormal gait, Denies numbness and Denies weakness Endo Reports palpitations Physical Exam Vital Signs: Last Vital Signs Pulse 84 12/16/24 10:52 BP 120/76 12/16/24 10:52 BMI result Body Mass Index 36.8 Const General: comfortable and no acute distress Orientation/consciousness: patient oriented x3 HEENT Other: Unremarkable Head: Yes normal to inspection Neck Neck: Yes normal visual inspection Chest Chest palpation & inspection: normal inspection of the chest Resp Auscultation: clear to auscultation bilaterally Cardio Palpation: normal PMI Heart sounds: S1 normal heart sound present, S2 normal heart sound present, no gallops, no murmurs and no rubs GI Palpation (GI): Soft to palpation Back/Spine/Pelvis Other: unremarkable Skin General skin exam: no rashes or lesions noted Neuro General: patient oriented x3 Extrem General: Yes normal to inspection Psych Mental Status: mental status grossly normal Office Procedures EKG Details: EKG with sinus rhythm at 84/Min; leftward axis; poor R-wave progression along the anterior leads but more likely from body habitus; [place] [id number], Complete Assessment & Plan Assessment & Plan (1) PAF (paroxysmal atrial fibrillation): Code(s): I48.0 - Paroxysmal atrial fibrillation Category: Medical (2) Premature atrial contractions: Code(s): I49.1 - Atrial premature depolarization Category: Medical Plan Cardiac studies reviewed. In the admission EKG, suspected atrial fibrillation rapid ventricular response. Could not exclude a prior inferior infarct or anterior infarct but more likely from body habitus. In the Holter monitor, underlying rhythm is sinus with frequent supraventricular ectopy. Possible transient atrial flutter/tachycardia at nighttime but not clear if it is rather an artifact. In the echocardiogram, LVEF 50-55%. Otherwise unremarkable. Coronary CTA shows no significant CAD. Overall, stable on diltiazem and continue that. If any recurrence, consider flecainide or ablation. We have discussed about weight loss in the past as well as today and hopefully she can lose some weight. She does have mild sleep apnea but not interested in CPAP. Hopefully, some weight loss will help. She has got low thromboembolic risk and isolated atrial fibrillation episode and hence can hold off on anticoagulation. It seems she has completed another Holter monitor recently and can review that once completed. Follow up in a year. She will call us with any ongoing concerns. Coding Level of Care Code Est Pt Level 3 (32836) Diagnoses PAF (paroxysmal atrial fibrillation) I48.0 Premature atrial contractions I49.1 CPT Codes EKG - CPT: 95514-[id number], Complete ([id number])
[2024-12-16 10:52] VITALS: BP 120/76; PULSE 84; BMI 36.8
--- OUTSIDE RECORDS SUMMARY | 2024-12-16 13:36 | XMS_ITS | Clinical Summary ---
Author Organization [facility] [address] [facility] Address [address] [place] [phone] Phone Care Team Providers Care Resource Conservationist Name Role Phone Yesenia Elkins NP Primary Care Provider [phone] Medications rosuvastatin (CRESTOR) 10 mg tabletIndications:M ixed [...] complete this topic Insurance [employer] Care Teams Resource Conservationist Relationship Specialty Start Date End Date Yesenia Elkins NP [address] [facility] [place] [address] PCP - General 03/16/22
== END 2024-12-16 11:24 | disposition home or self-care (01) ==
LOC: HO.HCS 10:39
PROVIDERS: PCP Nurse Practitioner Primary Care; Visit Provider Internal Medicine
DX: I48.0 Paroxysmal atrial fibrillation (principal); I49.1 Atrial premature depolarization
CPT/HCPCS: 93010; 99213

== ENCOUNTER → 2024-12-16 10:39 | Outpatient (BNVA) | payer OTHER, SELFPAY | PROVIDERS: PCP Nurse Practitioner Primary Care; Visit Provider Internal Medicine | DX: I48.0 Paroxysmal atrial fibrillation (principal); I49.1 Atrial premature depolarization | CPT/HCPCS: 93005 ==